=== PATIENT | male | born 1965 | race Caucasian/White ===

== ENCOUNTER 2023-01-24 16:51 | Emergency (ER) | payer OTHER, MEDICAID ==
[~2023-01-24] VITALS: Ht 185.4 cm; Wt 97.7 kg
[~2023-01-24 16:51] MED LIST: [UNRECOGNIZED DRUG - OTHER]
[2023-01-24 17:11] VITALS: BP 87/57
[2023-01-24] MEDS ORDERED: CARV-49 PO (17:44)
[2023-01-24] MEDS ORDERED: LISI5TAB22 PO (17:44)
== END 2023-01-24 17:51 | disposition home or self-care (01) ==
LOC: ER 16:51
DX: I27.20 Pulmonary hypertension, unspecified (principal); I50.9 Heart failure, unspecified; Z88.2 Allergy status to sulfonamides; Z79.899 Other long term (current) drug therapy
CPT/HCPCS: 99284

== ENCOUNTER 2023-02-06 09:19 | Emergency (ER) | payer OTHER, MEDICAID ==
[~2023-02-06] VITALS: Ht 182.9 cm; Wt 95.5 kg
[~2023-02-06 09:19] MED LIST changes: +CARV-49 PO; +LISI5TAB22 PO
[2023-02-06 09:21] VITALS: BP 102/70
[2023-02-06] MEDS ORDERED: ISOS30TA10 PO (10:37)
[2023-02-06] MEDS ORDERED: CARV-49 PO (10:37)
[2023-02-06] MEDS ORDERED: LISI5TAB22 PO (10:37)
[2023-02-06] MEDS ORDERED: POTA-208 PO (10:37)
[2023-02-06] MEDS ORDERED: FURO-149 PO (10:37)
== END 2023-02-06 10:49 | disposition home or self-care (01) ==
LOC: ER 09:19
DX: Z00.00 Encounter for general adult medical examination without abnormal findings (principal); Z76.0 Encounter for issue of repeat prescription; I50.9 Heart failure, unspecified; I27.20 Pulmonary hypertension, unspecified; Z72.9 Problem related to lifestyle, unspecified; Z79.899 Other long term (current) drug therapy; Z88.2 Allergy status to sulfonamides
CPT/HCPCS: 99281

== ENCOUNTER 2024-11-27 10:03 | Emergency (ER) | payer MEDICAID, OTHER ==
[~2024-11-27] VITALS: Ht 182.9 cm; Wt 69.2 kg
[~2024-11-27 10:03] MED LIST changes: +FURO-149 PO; +ISOS30TA10 PO; +POTA-208 PO
[2024-11-27 10:09] VITALS: BP 104/65; PULSE 97; TEMP 97.1; O2SAT 95
[2024-11-27 11:44] VITALS: RESP 16
[2024-11-27] MEDS: HYDROcodone/acetaminophen 10/325mg tab PO ONE (11:44)
[2024-11-27] MEDS ORDERED: HYDR-3972 PO (12:58)
== END 2024-11-27 13:27 | disposition home or self-care (01) ==
LOC: ER 10:03
DX: S52.121A Displaced fracture of head of right radius, initial encounter for closed fracture (principal); I27.20 Pulmonary hypertension, unspecified; I50.9 Heart failure, unspecified; Z88.2 Allergy status to sulfonamides; W51.XXXA Accidental striking against or bumped into by another person, initial encounter; Y93.89 Activity, other specified; Y92.89 Other specified places as the place of occurrence of the external cause; Y99.8 Other external cause status
CPT/HCPCS: 29125; 73110; 99283; A6446; A6449